=== PATIENT | male | born 1970 | race Caucasian/White ===

== ENCOUNTER 2019-03-10 14:44 | Emergency (ER) | payer OTHER ==
[2019-03-10 14:51] VITALS: BP 132/88; PULSE 81; TEMP 98.7; BMI 34.0
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
[2019-03-10] MEDS ORDERED: LIDOCAINE HCL 1%, 10 MG/ML (20ML VIAL) ONE (15:52)
[2019-03-10] MEDS ORDERED: DIPHTH,PERTUSS(ACELL),TET 0.5 ML DISP.SYRIN IM ONE (16:13)
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
== END 2019-03-10 16:45 | disposition home or self-care (01) ==
LOC: FER 14:44
PROC: 0HQFXZZ Repair Right Hand Skin, External Approach (ICD-10-PCS; principal; 2019-03-10)
DX: S61.210A Laceration without foreign body of right index finger without damage to nail, initial encounter (principal); W26.0XXA Contact with knife, initial encounter; Y93.G1 Activity, food preparation and clean up; Y92.89 Other specified places as the place of occurrence of the external cause
CPT/HCPCS: 73140-TC-LT-FY; 99283-25

== ENCOUNTER 2019-03-13 09:02 | Emergency (ER) | payer OTHER ==
[2019-03-13 09:11] VITALS: BP 126/89; PULSE 63; TEMP 98.6; BMI 34.0
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
== END 2019-03-13 09:50 | disposition home or self-care (01) ==
LOC: FER 09:02
DX: Z48.00 Encounter for change or removal of nonsurgical wound dressing (principal)
CPT/HCPCS: 99282-25